=== PATIENT | female | born 1960 | race Caucasian/White ===

== ENCOUNTER 2018-01-21 09:10 | Emergency (ER) | payer MEDICARE, MEDICAID ==
[2018-01-21 09:17] VITALS: BP 121/67
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
== END 2018-01-21 10:37 | disposition home or self-care (01) ==
LOC: ER 09:10
DX: G89.29 Other chronic pain (principal); M54.9 Dorsalgia, unspecified; M25.559 Pain in unspecified hip; T42.6X6A Underdosing of other antiepileptic and sedative-hypnotic drugs, initial encounter; T42.8X6A Underdosing of antiparkinsonism drugs and other central muscle-tone depressants, initial encounter; Z91.128 Patient's intentional underdosing of medication regimen for other reason; Z91.14 Patient's other noncompliance with medication regimen
CPT/HCPCS: 99283